=== PATIENT | male | born 1985 | race Caucasian/White ===

== ENCOUNTER 2019-03-11 22:29 | Emergency (ER) | payer SELFPAY ==
[2019-03-11] MEDS ORDERED: NALOXONE HCL 2 MG/2 ML SYR IVP ONE (22:34)
--- NOTE | 2019-03-11 22:35 | EDPHY ---
H & P Time Seen by Provider: 03/11/19 22:33 HPI/ROS: Chief Complaint: Paranoia, substance abuse HPI: 33-year-old male's being brought in by EMS after he was contacted by police. Patient states about 2 hr ago he was smoking black tar heroin and methamphetamine. Patient states that after using methamphetamine he started feel little bit paranoid around his friends. He decided to go for a walk. While walking he was encountered by police lieutenant which she says made him feel even more paranoid. Patient became increasingly head CT dated and EMS was called. An IV was placed but it it was lost. He did not receive any Narcan. He has been awake and answering questions. He has been moderately tachycardic. He is answering all questions. Denies any alcohol or any other substance use. States that he smoked both of the drugs this evening. Denies any falls or head injuries. Denies any pain. Is otherwise currently without complaint. Patient is currently very conversant and logical. Denies being suicidal at this time. ROS: 10 systems were reviewed and were negative except those elements noted in the HPI. PMH: Meth and heroin abuse Social History: Positive smoking, no alcohol, meth and heroin use Family History: non-contributory Physical Exam: Gen: Awake, Alert, No Distress HEENT: Nose: no rhinorrhea Eyes: PERRLA, EOMI Mouth: Moist mucosa Neck: Supple, no JVD Chest: nontender, lungs clear to auscultation Heart: S1, S2 normal, no murmur Abd: Soft, non-tender, no guarding Back: no CVA tenderness, no midline tenderness Ext: no edema, non-tender Skin: no rash Neuro: CN II-XII intact, Sensation grossly intact, Strength 5/5 in bilateral upper and lower extremities - Medical/Surgical History Hx Asthma: No Hx Chronic Respiratory Disease: No Hx Diabetes: No Hx Cardiac Disease: No Hx Renal Disease: No Hx Cirrhosis: No Hx Alcoholism: No Hx HIV/AIDS: No Hx Splenectomy or Spleen Trauma: No Other PMH: pt denies - Social History Smoking Status: Current every day smoker Constitutional: Initial Vital Signs Temperature (C) 36.9 C 03/11/19 22:37 Heart Rate 108 H 03/11/19 22:37 Respiratory Rate 14 03/11/19 22:37 Blood Pressure 153/93 H 03/11/19 22:37 O2 Sat (%) 92 03/11/19 22:37 O2 Delivery Mode Room Air Allergies/Adverse Reactions: No Known Allergies Allergy (Unverified 12/31/14 00:59) Home Medications: Medication Instructions Recorded Ondansetron Odt [Zofran Odt 4 mg 4 mg PO Q4 PRN #20 tab 12/31/14 (RX)] Medical Decision Making ED Course/Re-evaluation: 33-year-old male being brought in for medical clearance for polysubstance abuse. Patient admits to using methamphetamine and heroin. Patient is awake alert and answering questions. No respiratory depression. 0330 patient is up and ambulating unassisted to the bathroom. Patient is medically clear for alf. Departure - Departure Disposition: Law Enforcement/Court/Prison Clinical Impression: Polysubstance abuse Condition: Good Instructions: Polysubstance Abuse (ED) Additional Instructions: MEDICALLY CLEAR FOR DETENTION Referrals: Patient,NotPresent [Primary Care Provider] - As per Instructions
[2019-03-12 03:37] VITALS: BP 121/81
== END 2019-03-12 03:41 ==
LOC: EDUNIT#
DX: F19.10 Other psychoactive substance abuse, uncomplicated (principal)
CPT/HCPCS: J2310